=== PATIENT | female | born 1980 | race Caucasian/White ===

== ENCOUNTER 2017-12-26 11:08 | Emergency (ER) | payer OTHER ==
[2017-12-26 11:37] VITALS: BP 158/100
--- NOTE | 2017-12-26 12:22 | UC ---
Complaint Female HPI - HPI Summary HPI Summary: Patient states that for the past 2 days she has felt burning as she urinates, denies chills, fever or flank pain. She is concerned it may be a recurrence of genital herpes which she had about 15 years ago. Denies frequency or foul smelling urine. She states her menses are coming any time now. - History Of Current Complaint Chief Complaint: UCGU Stated Complaint: URINARY Time Seen by Provider: 12/26/17 11:54 Hx Obtained From: Patient Hx Last Menstrual Period: 11/28/17 ?: No Onset/Duration: Sudden Onset Pain Intensity: 5 Character: Burning Aggravating Factor(s): Urination Alleviating Factor(s): Nothing Associated Signs And Symptoms: Positive: Negative - Risk Factors Ectopic Risk Factor: Maternal Age ^ 30 Ovarian Torsion Risk Factor: Negative - Allergies/Home Medications Allergies/Adverse Reactions: Allergies Allergy/AdvReac Type Severity Reaction Status Date / Time No Known Allergies Allergy Verified 12/26/17 11:26 Home Medications: Home Medications FLUoxetine CAP* [PROzac CAP*] 40 mg PO DAILY 12/26/17 [History Confirmed ] PMH/Surg Hx/FS Hx/Imm Hx Previously Healthy: Yes Psychological History: Depression - Surgical History Surgical History: Yes Surgery Procedure, Year, and Place: RIGHT LEG FX REPAIR WITH HARDWARE. BREAST REDUCTION - Family History Known Family History: Positive: None - Social History Alcohol Use: Occasionally Substance Use Type: None Smoking Status (MU): Never Smoked Tobacco Review of Systems Constitutional: Negative Genitourinary: Dysuria All Other Systems Reviewed And Are Negative: Yes Physical Exam Triage Information Reviewed: Yes Appearance: Well-Appearing, No Pain Distress, Obese Vital Signs: Initial Vital Signs Temp 98.5 F 12/26/17 11:28 Pulse 81 12/26/17 11:28 Resp 20 12/26/17 11:28 BP 158/100 12/26/17 11:28 Pulse Ox 96 12/26/17 11:28 Vital Signs Reviewed: Yes Eyes: Positive: Conjunctiva Clear ENT: Positive: Hearing grossly normal Neck: Positive: Supple Respiratory: Positive: Chest non-tender Cardiovascular: Positive: Pulses Normal, Brisk Capillary Refill Abdomen Description: Positive: Nontender Pelvic Exam: Positive: External Exam Normal, Speculum Exam Normal, Blood, Other - patient wants to defer pelvic exam Complaint Female Dx - Course Course Of Treatment: On physical exam there was no lesion visualized on external genitalia. No Vaginal discharged was noted, rest of the exam was limited by subsequent menstruation. Patient refused pelvic exam and states she will f/u with her anaesthetic technician in a month. Urine culture is pending - Differential Dx/Diagnosis Provider Diagnoses: Dysuria Discharge - Sign-Out/Discharge Documenting (check all that apply): Patient Departure All imaging exams completed and their final reports reviewed: No Studies - Discharge Plan Condition: Stable Disposition: HOME Patient Education Materials: Dysuria (ED) Referrals: Marichuy Carias MD [Primary Care Provider] - - Billing Disposition and Condition Condition: STABLE Disposition: Home
== END 2017-12-26 12:27 | disposition home or self-care (01) ==
LOC: MERGE 11:08 → UCCORT 11:08
DX: R30.0 Dysuria (principal)
CPT/HCPCS: 81003; 87086; 99211; G0463

== ENCOUNTER 2018-02-04 10:56 | Emergency (ER) | payer OTHER ==
[2018-02-04 11:24] VITALS: BP 139/88
--- NOTE | 2018-02-04 12:28 | RAD ---
HISTORY: worsening posterior leg pain and swelling COMPARISONS: None relevant TECHNIQUE: Multiple transverse and longitudinal ultrasound images were obtained of the left lower extremity from the level of the common femoral vein inferiorly through to the infrapopliteal veins using grayscale, color Doppler, and spectral Doppler imaging with and without compression and with augmentation. Comparison images were obtained of the contralateral common femoral vein. FINDINGS: VEINS: The venous system of the left lower extremity is compressible throughout its course, with normal flow on color Doppler imaging and normal response to augmentation on spectral Doppler imaging. SOFT TISSUES: Unremarkable. OTHER FINDINGS: None. IMPRESSION: NO LEFT LOWER EXTREMITY DEEP VEIN THROMBOSIS
--- NOTE | 2018-02-04 12:29 | UC ---
Lower Extremity/Ankle HPI - HPI Summary HPI Summary: Pt presents with worsening left knee and leg pain. Pt states that she began having left knee pain ~ 6 weeks ago and was seen by an orthopedic provider ~ 5 weeks ago. Denies previous injury. Pt states she had an xray of left knee and was given the diagnosis of overuse syndrome. Pt presents today with worsening left posterior knee pain that radiates proximal to left hip and distal left mid calf. - History of Current Complaint Chief Complaint: UCLowerExtremity Stated Complaint: LEFT LEG COMPLAINT Time Seen by Provider: 02/04/18 11:49 Hx Obtained From: Patient Hx Last Menstrual Period: ~01/21/18 ?: No Onset/Duration: Gradual Onset, Lasting Weeks, Still Present, Worse Since - 6 weeks ago Severity Initially: Mild Severity Currently: Severe Pain Intensity: 8 Aggravating Factor(s): Standing, Ambulation Alleviating Factor(s): Nothing Able to Bear Weight: Yes - minimal - Risk Factors Gout Risk Factors: Negative DVT Risk Factors: Negative Septic Arthritis Risk Factor: Negative - Allergies/Home Medications Allergies/Adverse Reactions: Allergies Allergy/AdvReac Type Severity Reaction Status Date / Time No Known Allergies Allergy Verified 02/04/18 11:18 Home Medications: Home Medications Acetaminophen TAB* [Tylenol TAB*] 650 mg PO Q4H PRN 02/04/18 [History Confirmed 02/04/18] Ibuprofen TAB* [Advil TAB*] 600 mg PO Q6H PRN 02/04/18 [History Confirmed ] Lisinopril TAB* [Prinivil TAB 5 MG*] 5 mg PO DAILY 02/04/18 [History Confirmed 02/04/18] PMH/Surg Hx/FS Hx/Imm Hx Previously Healthy: Yes - Surgical History Surgical History: Yes Surgery Procedure, Year, and Place: Right Tib/Fib Fracture Repair, 2007, [facility] ; Breast Reduction, 2007, [place] - Family History Known Family History: Positive: Cardiac Disease - Social History Occupation: Employed Full-time - owns a restaurant Alcohol Use: Occasionally Substance Use Type: None Smoking Status (MU): Never Smoked Tobacco Have You Smoked in the Last Year: No Review of Systems Constitutional: Negative Skin: Negative Eyes: Negative ENT: Negative Respiratory: Negative Cardiovascular: Negative Gastrointestinal: Negative Genitourinary: Negative Motor: Decreased ROM - pain with left knee ROM Neurovascular: Negative Musculoskeletal: Arthralgia, Decreased ROM - pain with ROM, Myalgia Neurological: Negative Psychological: Negative Is Patient Immunocompromised?: No All Other Systems Reviewed And Are Negative: Yes Physical Exam Triage Information Reviewed: Yes Appearance: Pain Distress Vital Signs: Initial Vital Signs Temp 98.6 F 02/04/18 11:16 Pulse 90 02/04/18 11:16 Resp 16 02/04/18 11:16 BP 139/88 02/04/18 11:16 Pulse Ox 100 02/04/18 11:16 Vital Signs Reviewed: Yes Eye Exam: Normal ENT Exam: Normal Dental Exam: Normal Neck exam: Normal Respiratory Exam: Normal Respiratory: Positive: No respiratory distress Musculoskeletal Exam: Other Musculoskeletal: Positive: ROM Limited @ - pain with ROM left knee, Other: - left posterior knee pain with applied pressure Neurological Exam: Normal Psychological Exam: Normal Skin Exam: Normal Diagnostics - Radiology No standard instances Radiology Interpretation Completed By: Radiologist - IMPRESSION: NO LEFT LOWER EXTREMITY DEEP VEIN THROMBOSIS Lower Extremity Course/Dx - Differential Dx/Diagnosis Differential Diagnosis/HQI/PQRI: DVT, Infection, Strain, Tendonitis Provider Diagnoses: tendonitis left knee Discharge - Sign-Out/Discharge Documenting (check all that apply): Patient Departure All imaging exams completed and their final reports reviewed: Yes - Discharge Plan Condition: Stable Disposition: HOME Prescriptions: predniSONE TAB* [Deltasone 10 MG TAB*] 30 mg PO DAILY #12 tab Patient Education Materials: Knee Pain (ED), Tendinitis (ED) Referrals: Skip David MD [Medical Doctor] - If Needed Marichuy Carias MD [Primary Care Provider] - If Needed - Billing Disposition and Condition Condition: STABLE Disposition: Home - Attestation Statements Provider Attestation: Per institutional requirements, I have reviewed the chart, however, I was not consulted specifically or made aware of this patient by the midlevel provider. I did not personally evaluate, interact with , or disposition this patient.
== END 2018-02-04 12:46 | disposition home or self-care (01) ==
LOC: UCCORT 10:56
DX: M76.9 Unspecified enthesopathy, lower limb, excluding foot (principal)
CPT/HCPCS: 99212; G0463